=== PATIENT | male | born 1990 ===

== ENCOUNTER 2022-01-12 13:01 | Inpatient (IN) ==
[2022-01-12] MEDS ORDERED: PIPERACILLIN/TAZOBACTAM 3,375 MG in SODIUM CHLORIDE 0.9% 100 ML IV STA (13:31)
[2022-01-12] MEDS ORDERED: ONDANSETRON 4 MG/2 ML VIAL IV ONE (13:39)
[2022-01-12] MEDS ORDERED: HYDROmorphone 1 MG/1 ML SYRINGE IV STA (13:39)
[2022-01-12] MEDS ORDERED: ONDANSETRON 4 MG/2 ML VIAL IV PRN (14:16)
[2022-01-12] MEDS: ACETAMINOPHEN 325 MG TABLET PO PRN (19:37)
[2022-01-12] MEDS: HYDROmorphone 1 MG/1 ML SYRINGE IV PRN (19:37)
[2022-01-13] MEDS: PIPERACILLIN/TAZOBACTAM 3,375 MG in SODIUM CHLORIDE 0.9% 100 ML IV SCH ×2 (01:46→15:03)
[2022-01-13] MEDS: ACETAMINOPHEN 325 MG TABLET PO PRN (04:50)
[2022-01-13 05:56] LABS: Basophils % 0.2 % (0.0-0.8); Eosinophils # 0.1 10*3/uL (0.0-0.87); Eosinophils % 0.7 % (0.00-10.9); Hematocrit 28.3 VOL% (42.0-52.0); Hemoglobin 9.3 GM/DL (14.0-18.0); Immature Granulocytes % 0.8 %; Immature Granulocytes Absolute 0.08 #; Lymphocytes # 0.9 10*3/uL (1.4-4.0); Lymphocytes % 9.4 % (21.2-54.2); Mean Corpuscular HGB Conc 32.9 GM/DL (32-36); Monocytes # 0.9 10*3/uL (0.11-0.8); Monocytes % 8.8 % (1.7-12.7); Neutrophils % 80.1 % (38.7-73.9); Platelet Count 102 T/CUMM (130-400); Red Blood Count 3.01 MC/CUMM (3.8-5.5); Red Cell Distribution Width 14.4 % (9.3-17.3); White Blood Count 9.8 T/CUMM (4-12)
[2022-01-13 06:21] LABS: Albumin 2.4 G/DL (3.4-5.0); Bilirubin,Total 1.7 MG/DL (0.20-1.00); Calcium 8.7 MG/DL (8.5-10.1); Osmolality,Calculated 273.4 MOS/KG (273-304); Potassium 4.5 MMOL/L (3.5-5.1); Total Protein 6.6 G/DL (6.4-8.2)
[2022-01-13] MEDS ORDERED: SODIUM CHLORIDE 0.9% 500 ML IV ONE ×2 (07:17→15:59)
[2022-01-13] MEDS ORDERED: BUPIVACAINE MPF 0.25% 10 ML VIAL ONE (07:36)
[2022-01-13] MEDS ORDERED: TISSUE ADHESIVE 1 EACH APPLICATOR TOP ONE (07:36)
[2022-01-13] MEDS ORDERED: LIDOCAINE 1%/EPI INJ 20 ML VIAL ONE (07:37)
[2022-01-13] MEDS ORDERED: PROMETHAZINE INJ 25 MG in SODIUM CHLORIDE 0.9% 50 ML IV PRN (08:41)
[2022-01-13] MEDS ORDERED: ONDANSETRON 4 MG/2 ML VIAL IV PRN (08:41)
[2022-01-13] MEDS ORDERED: MEPERIDINE 25 MG/1 ML VIAL IV PRN (08:41)
[2022-01-13] MEDS ORDERED: diphenhydrAMINE 50 MG/1 ML VIAL IV PRN (08:41)
[2022-01-13] MEDS: PANTOPRAZOLE 40 MG TABLET PO SCH (09:47)
[2022-01-13] MEDS ORDERED: fentaNYL 100 MCG/2 ML VIAL ONE ×2 (11:09→11:48)
[2022-01-13] MEDS ORDERED: LIDOCAINE 2% 5 ML VIAL ONE (11:10)
[2022-01-13] MEDS ORDERED: ETOMIDATE 40 MG/20 ML VIAL IV ONE (11:10)
[2022-01-13] MEDS ORDERED: MORPHINE 2 MG/1 ML SYRINGE IV PRN (13:03)
[2022-01-13] MEDS: HYDROmorphone 1 MG/1 ML SYRINGE IV PRN ×5 (13:10→21:17)
[2022-01-13 18:56] LABS: Hematocrit 29.1 VOL% (42.0-52.0); Hemoglobin 9.5 GM/DL (14.0-18.0)
[2022-01-13 21:42] LABS: Hematocrit 27.7 VOL% (42.0-52.0)
[2022-01-14] MEDS: PIPERACILLIN/TAZOBACTAM 3,375 MG in SODIUM CHLORIDE 0.9% 100 ML IV SCH ×2 (02:45→14:50)
[2022-01-14 05:48] LABS: Hematocrit 26.1 VOL% (42.0-52.0); Hemoglobin 8.6 GM/DL (14.0-18.0)
[2022-01-14 05:50] LABS: Basophils % 0.2 % (0.0-0.8); Eosinophils # 0.1 10*3/uL (0.0-0.87); Eosinophils % 0.7 % (0.00-10.9); Hematocrit 26.3 VOL% (42.0-52.0); Hemoglobin 8.7 GM/DL (14.0-18.0); Immature Granulocytes % 1.6 %; Immature Granulocytes Absolute 0.14 #; Lymphocytes # 0.8 10*3/uL (1.4-4.0); Lymphocytes % 8.6 % (21.2-54.2); Mean Corpuscular HGB Conc 33.1 GM/DL (32-36); Mean Corpuscular Volume 93.9 FL (87-102); Mean Platelet Volume 11.8 FL (9.6-12.0); Monocytes # 0.7 10*3/uL (0.11-0.8); Monocytes % 7.6 % (1.7-12.7); Neutrophils % 81.3 % (38.7-73.9); Platelet Count 102 T/CUMM (130-400); Red Cell Distribution Width 14.1 % (9.3-17.3)
[2022-01-14 05:58] LABS: Albumin 2.3 G/DL (3.4-5.0); Bilirubin,Total 1.3 MG/DL (0.20-1.00); Calcium 9.3 MG/DL (8.5-10.1); Osmolality,Calculated 274.7 MOS/KG (273-304); Potassium 4.8 MMOL/L (3.5-5.1); Total Protein 6.6 G/DL (6.4-8.2)
[2022-01-14] MEDS: HYDROmorphone 1 MG/1 ML SYRINGE IV PRN (09:46)
[2022-01-14] MEDS: PANTOPRAZOLE 40 MG TABLET PO SCH (10:11)
[2022-01-14] MEDS: guaiFENesin/DM ER 600-30 MG TABLET PO PRN (22:36)
[2022-01-15] MEDS: PIPERACILLIN/TAZOBACTAM 3,375 MG in SODIUM CHLORIDE 0.9% 100 ML IV SCH ×2 (02:33→14:27)
[2022-01-15] MEDS: SEVELAMER CARBONATE 800 MG TABLET PO SCH ×3 (08:56→17:10)
[2022-01-15] MEDS: PANTOPRAZOLE 40 MG TABLET PO SCH (08:56)
[2022-01-15] MEDS: guaiFENesin/DM ER 600-30 MG TABLET PO PRN (08:56)
[2022-01-15 13:59] LABS: Hepatitis B Core IgM Quant 0.21 Index; Hepatitis B Surface Ag Quant < 0.10 Index; Hepatitis B Surface Ag Result Non-Reactive (NonReactive); Hepatitis C Virus Ab Quant 0.03 Index; Hepatitis C Virus Ab Result Non-Reactive (NonReactive)
[2022-01-16] MEDS: PIPERACILLIN/TAZOBACTAM 3,375 MG in SODIUM CHLORIDE 0.9% 100 ML IV SCH (01:05)
[2022-01-16] MEDS: guaiFENesin/DM ER 600-30 MG TABLET PO PRN (01:09)
[2022-01-16 07:42] VITALS: BP 101/66
[2022-01-16] MEDS: PANTOPRAZOLE 40 MG TABLET PO SCH (08:42)
[2022-01-16] MEDS: SEVELAMER CARBONATE 800 MG TABLET PO SCH (08:42)
== END 2022-01-16 11:15 | disposition home or self-care (01) | DRG 263 ==
LOC: EDUNIT# → N.ED 13:01 → N.EDINP 14:16 → N.3E 14:53
PROVIDERS: ADMIT Surgery; ATTEND Surgery
PROC: LAPCHOL (2022-01-13 11:19)